=== PATIENT | female | born 1955 | race Two or more races ===

== ENCOUNTER 2024-02-06 09:52 | Outpatient (REF) | payer MEDICARE, SELFPAY ==
[2024-02-06 11:25] LABS: Erythrocyte Sedimentation Rate 17 MM/HR (0-20)
[2024-02-06 11:34] LABS: Vitamin B12 934 pg/mL (200-900)
[2024-02-07 08:34] LABS: Lyme Abs Screen <0.90 index
== END 2024-02-06 09:53 | disposition home or self-care (01) ==
LOC: HO.LAB 09:52
PROVIDERS: Visit Provider Psychiatry & Neurology Neurology
DX: G30.9 Alzheimer's disease, unspecified (principal)
CPT/HCPCS: 36415; 82607; 85652; 86617; 86618